=== PATIENT | female | born 1995 | race Caucasian/White ===

== ENCOUNTER 2018-09-17 23:22 | Emergency (ER) | payer OTHER, MEDICAID ==
[2018-09-18] MEDS: SOD CHLORIDE 0.9% 1,000 ML IV (06:32)
[2018-09-18] MEDS: ONDANSETRON 4 MG INJ IV (06:33)
[2018-09-18] MEDS: KETOROLAC 30 MG INJ IV (06:33)
[2018-09-18 06:53] LABS: ADD UMIC YES; UR ASCORBIC ACID NEGATIVE (NEGATIVE); UR BACTERIA FEW /HPF (NONE SEEN); UR BILIRUBIN (Dip) NEGATIVE (NEGATIVE); UR BLOOD (Dip) 3+ mg/dL (NEGATIVE); UR CLARITY CLEAR (CLEAR); UR COLOR YELLOW (YELLOW); UR GLUCOSE (Dip) NEGATIVE (NEGATIVE); UR KETONES (Dip) NEGATIVE (NEGATIVE); UR LEUKOCYTE ESTERASE (Dip) NEGATIVE Leu/ul (NEGATIVE); UR NITRITE (Dip) NEGATIVE (NEGATIVE); UR RBC 1 /HPF (0-5); UR SQUAMOUS EPITHELIAL CELL FEW /HPF (FEW); UR TOTAL PROTEIN (Dip) NEGATIVE (NEGATIVE); UR UROBILINOGEN (Dip) NEGATIVE (NEGATIVE); UR WBC 5 /HPF (0-5)
== END 2018-09-18 07:34 | disposition home or self-care (01) ==
LOC: FTE 23:22
DX: R51 Headache (principal)
CPT/HCPCS: 81001; 81025; 96374; 96375; 99284-25